=== PATIENT | male | born 1970 ===

== ENCOUNTER 2018-02-24 17:04 | Emergency (ER) | payer MEDICAID, OTHER ==
[~2018-02-24] VITALS: Ht 190.5 cm; Wt 98.2 kg
[2018-02-24 17:13] VITALS: BP 164/92
[2018-02-24] MEDS ORDERED: HYDROcodone/APAP 5/325 TABLET ONE (18:48)
[2018-02-24] MEDS ORDERED: HYDROcodone/APAP 5/325 TABLET PO ONE (19:00)
== END 2018-02-24 20:10 | disposition home or self-care (01) ==
LOC: ED 18:22
DX: S20.212A Contusion of left front wall of thorax, initial encounter (principal); W01.0XXA Fall on same level from slipping, tripping and stumbling without subsequent striking against object, initial encounter; Y93.E1 Activity, personal bathing and showering; Y92.002 Bathroom of unspecified non-institutional (private) residence as the place of occurrence of the external cause; Y99.8 Other external cause status
CPT/HCPCS: 72072; 99284